=== PATIENT | female | born 1980 | race Two or more races ===

== ENCOUNTER 2021-04-27 13:07 | Emergency (ER) | payer BC ==
[~2021-04-27] VITALS: Ht 160 cm; Wt 76.1 kg
[2021-04-27 13:36] LABS: MICROSCOPIC NOT IND
--- NOTE | 2021-04-27 13:40 | NUR ---
TASK RN, MEAL BREAK RELIEF. URINE COLLECTED/SENT TO LAB. BP CUFF, PULSE OX IN PLACE. AWAITING US AND LAB. CALL LIGHT WITHIN REACH, WARM BLANKET PROVIDED.
[2021-04-27 13:51] LABS: BASOPHILS % (AUTO) 1 % (0-1); EOSINOPHILS % (AUTO) 2 % (1-7); LYMPHOCYTES % (AUTO) 20 % (22-44); MEAN CORPUSCULAR HEMOGLOBIN 32.1 pg (27.0-34.8); MEAN CORPUSCULAR HGB CONC 34.4 g/dL (32.4-35.8); MEAN PLATELET VOLUME 9.1 fL (7.4-10.4); MONOCYTES % (AUTO) 4 % (2-9); NEUTROPHILS % (AUTO) 74 % (42-75); PLATELET COUNT 177 x10^3/uL (130-400); RED BLOOD COUNT 4.26 x10^6/uL (3.82-5.3)
[2021-04-27 14:02] LABS: ALBUMIN 3.8 g/dL (3.4-5.0); ANION GAP 7 mmol/L (5-15); CALCIUM 8.9 mg/dL (8.5-10.1); CHLORIDE 109 mmol/L (98-107); CREATININE 0.71 mg/dL (0.55-1.02)
[2021-04-27 14:20] VITALS: BP 101/69
== END 2021-04-27 15:37 | disposition home or self-care (01) ==
LOC: ED 15:20
DX: R10.31 Right lower quadrant pain (principal); R10.32 Left lower quadrant pain
CPT/HCPCS: 36415; 76830; 80048; 81003; 82040; 84703; 85025; 99284